=== PATIENT | male | born 1955 | race Caucasian/White ===

== ENCOUNTER → 2024-01-22 09:54 | Outpatient (BNVA) | payer MEDICARE, SELFPAY | PROVIDERS: Referring Provider Nurse Practitioner Family; Visit Provider Nurse Practitioner Family | DX: M67.911 Unspecified disorder of synovium and tendon, right shoulder (principal); M25.531 Pain in right wrist; M19.011 Primary osteoarthritis, right shoulder | CPT/HCPCS: 73030; 73110 ==

== ENCOUNTER → 2024-01-27 09:22 | Outpatient (BNVA) | payer MEDICARE, SELFPAY | PROVIDERS: PCP Nurse Practitioner; Visit Provider Nurse Practitioner | DX: Z12.5 Encounter for screening for malignant neoplasm of prostate (principal); M10.9 Gout, unspecified; I10 Essential (primary) hypertension; M25.511 Pain in right shoulder | CPT/HCPCS: 80053; 80061; 84443; 84550; 85025; G0103 ==

== ENCOUNTER → 2024-03-02 10:53 | Outpatient (BNVA) | payer MEDICARE, SELFPAY | PROVIDERS: PCP Nurse Practitioner; Visit Provider Nurse Practitioner | DX: Z86.010 Personal history of colon polyps (principal); K57.30 Diverticulosis of large intestine without perforation or abscess without bleeding; R25.2 Cramp and spasm; R73.9 Hyperglycemia, unspecified | CPT/HCPCS: 83036; 83735; 84132 ==

== ENCOUNTER → 2024-06-01 10:26 | Outpatient (BNVA) | payer MEDICARE, SELFPAY | PROVIDERS: PCP Nurse Practitioner; Visit Provider Nurse Practitioner | DX: I10 Essential (primary) hypertension (principal); R05.9 Cough, unspecified | CPT/HCPCS: 71046; 80053; 85025; 93005 ==

== ENCOUNTER → 2025-02-24 10:43 | Outpatient (BNVA) | payer MEDICARE, SELFPAY | PROVIDERS: PCP Nurse Practitioner; Visit Provider Nurse Practitioner | DX: Z12.5 Encounter for screening for malignant neoplasm of prostate (principal); I10 Essential (primary) hypertension | CPT/HCPCS: 80053; 80061; 84443; 85025; 87806; G0103 ==

== ENCOUNTER → 2025-03-01 09:57 | Outpatient (BNVA) | payer MEDICARE, SELFPAY | PROVIDERS: PCP Nurse Practitioner; Visit Provider Nurse Practitioner | DX: R73.09 Other abnormal glucose (principal); M25.50 Pain in unspecified joint; I88.9 Nonspecific lymphadenitis, unspecified | CPT/HCPCS: 83036; 85651; 86038; 86140; 86431 ==

== ENCOUNTER → 2025-03-16 08:33 | Outpatient (BNVA) | payer MEDICARE, SELFPAY | PROVIDERS: PCP Nurse Practitioner; Visit Provider Surgery | DX: Z12.11 Encounter for screening for malignant neoplasm of colon (principal); K21.9 Gastro-esophageal reflux disease without esophagitis | CPT/HCPCS: 99024; 99204 ==

== ENCOUNTER → 2025-05-26 09:42 | Outpatient (BNVA) | payer MEDICARE, SELFPAY | PROVIDERS: PCP Nurse Practitioner; Visit Provider Nurse Practitioner | DX: M77.31 Calcaneal spur, right foot (principal) | CPT/HCPCS: 73630 ==

== ENCOUNTER 2025-05-31 13:04 | Outpatient (CLI) | payer MEDICARE, SELFPAY ==
--- NOTE | 2025-05-31 13:16 | XRR_ITS ---
PROCEDURE INFORMATION: Exam: XR Cervical Spine Exam date and time: 05/31/2025 1:31 PM Age: 69 years old Clinical indication: Injury or trauma; Blunt trauma; Injury date: 2.5 weeks ago; Injury details: Neck pain PT rolled lawnmower over 2 1/2 wks ago; Additional info: M54.2 - cervicalgia TECHNIQUE: Imaging protocol: Radiologic exam of the cervical spine. Views: 2 or 3 views. COMPARISON: CR XR chest 2V* [id number] 06/01/2024 10:37 AM FINDINGS: Bones/joints: C5-C6 disc space narrowing. C5 through C7 anterior spurring. Anatomic alignment. No fracture. No lytic or sclerotic bone lesion. No acute fracture. Normal alignment. Soft tissues: Unremarkable. XR/XR cervical spine 3V* [id number] IMPRESSION: Degenerative changes.
== END 2025-05-31 13:05 | disposition home or self-care (01) ==
PROVIDERS: PCP Nurse Practitioner; Visit Provider Nurse Practitioner
DX: M48.02 Spinal stenosis, cervical region (principal); M50.30 Other cervical disc degeneration, unspecified cervical region
CPT/HCPCS: 72040

== ENCOUNTER → 2025-06-03 09:40 | Outpatient (BNVA) | payer MEDICARE, SELFPAY | PROVIDERS: PCP Nurse Practitioner; Visit Provider Podiatrist Foot & Ankle Surgery | DX: S90.851A Superficial foreign body, right foot, initial encounter (principal); L60.2 Onychogryphosis; X58.XXXA Exposure to other specified factors, initial encounter | CPT/HCPCS: 10120; 99204 ==

== ENCOUNTER 2025-06-10 08:41 | Outpatient (CLI) | payer MEDICARE, SELFPAY ==
--- NOTE | 2025-06-10 09:30 | MR_ITS ---
WS: [id number] MRI CERVICAL SPINE NONCONTRAST HISTORY: M54.2 - Cervicalgia COMPARISON: None available. Technique: Multiplanar, multisequence noncontrast imaging of the cervical spine. Straightening of the normal cervical lordosis. Signal within the cervical cord is normal. Visualized posterior fossa is unremarkable. Craniocervical junction, C1 and C2 relationship, odontoid process and soft tissues are normal. C2-C3: Mild osteophytic ridging resulting in mild bilateral foraminal stenosis, LEFT greater than RIGHT. Mild facet arthritis. C3-C4: Diffuse annular disc bulge with osteophytic ridging and facet arthritis. Moderate central and RIGHT foraminal stenosis. Severe LEFT foraminal stenosis. C4-C5: Diffuse osteophytic ridging with a moderate LEFT paracentral disc osteophyte complex deforming the thecal sac. Severe central stenosis. Moderate RIGHT and severe LEFT foraminal stenosis and moderate facet arthritis. C5-C6: Marked annular disc bulging with osteophytic ridging and facet arthritis. Complete effacement of CSF. Severe central and bilateral foraminal stenosis. C6-C7: Severe osteophytic ridging with disc bulging. Central disc protrusion. Facet arthritis. Severe central and bilateral foraminal stenosis. C7-T1: Diffuse annular disc bulging and osteophytic ridging. Moderate central and severe bilateral foraminal stenosis. T1-2: Mild stenosis suspected. This level is not included on the axial sequence. Normal paravertebral soft tissues. MR/MR cervical spin wo con* [id number] IMPRESSION: 1. No acute fracture or cord injury identified. 2. Multiple levels of central and foraminal stenosis due to combination of dis c, osteophytosis and facet arthritis. 3. C5-6 and C6-7: Severe central and bilateral foraminal stenosis. 4. C3-4: Severe LEFT foraminal stenosis, moderate central and RIGHT foraminal stenosis. 5. C4-5: Severe central stenosis, moderate RIGHT and severe LEFT foraminal kaur nosis and facet arthritis. Moderate size LEFT paracentral disc osteophyte compl ex. 6. C7-T1: Moderate central and severe bilateral foraminal stenosis. 7. Mild bilateral foraminal stenosis at C2-3.
== END 2025-06-10 08:42 | disposition home or self-care (01) ==
LOC: RAD 08:42
PROVIDERS: PCP Nurse Practitioner; Visit Provider Nurse Practitioner
DX: M99.61 Osseous and subluxation stenosis of intervertebral foramina of cervical region (principal); M47.896 Other spondylosis, lumbar region; M25.78 Osteophyte, vertebrae
CPT/HCPCS: 72141

== ENCOUNTER → 2025-06-15 10:12 | Outpatient (BNVA) | payer MEDICARE, SELFPAY | PROVIDERS: PCP Nurse Practitioner; Visit Provider Nurse Practitioner | DX: E11.9 Type 2 diabetes mellitus without complications (principal) | CPT/HCPCS: 80053; 80061; 83036; 85025 ==

== ENCOUNTER → 2025-06-24 14:56 | Outpatient (BNVA) | payer MEDICARE, SELFPAY | PROVIDERS: PCP Nurse Practitioner; Visit Provider Orthopaedic Surgery | DX: M48.02 Spinal stenosis, cervical region (principal); M99.61 Osseous and subluxation stenosis of intervertebral foramina of cervical region; G99.2 Myelopathy in diseases classified elsewhere | CPT/HCPCS: 99203 ==

== ENCOUNTER 2025-07-16 06:55 | Outpatient (CLI) | payer MEDICARE, SELFPAY ==
--- NOTE | 2025-07-16 07:30 | CT_ITS ---
WS: [id number] CT FACIAL BONES HISTORY: R22.0 - Localized swelling, mass and lump, head TECHNIQUE: Images obtained from the supraorbital location through the mandible. Soft tissue and bone windows are reviewed. Coronal and sagittal reformats have also been submitted. DLP: 629.[address] scans at [facility] use at least one of these dose optimization techniques: automated exposure control; mA and/or kV adjustment per patient size (includes targeted exams where dose is matched to clinical indication); or iterative reconstruction. COMPARISON: None available. No facial bone fractures. Zygomatic arches and the nasal bones are intact. Mandibular condyles are normal. No air-fluid levels within the paranasal sinuses. There is no fluid or soft tissue along the internal or external auditory canals. There is a very tiny amount of increased soft tissue associated with the LEFT middle ear ossicles. Upper thoracic spine is well aligned with mild facet joint arthropathy. No adenopathy or soft tissue mass is identified. The visualized unenhanced submandibular and parotid glands are negative. Visualized nasopharynx is normal. CT/CT facial bones wo con* [id number] IMPRESSION: 1. No nasal bone fractures or destructive bone lesions. 2. No soft tissue masses or adenopathy identified. 3. No fluid in the mastoid air cells or along the internal auditory canals.
== END 2025-07-16 06:56 | disposition home or self-care (01) ==
LOC: RAD 06:56
PROVIDERS: PCP Nurse Practitioner; Visit Provider Nurse Practitioner
DX: R22.0 Localized swelling, mass and lump, head (principal)
CPT/HCPCS: 70486